=== PATIENT | male | born 1985 | race Two or more races ===

== ENCOUNTER 2018-04-28 12:36 | Emergency (ER) | payer SELFPAY ==
[~2018-04-28] VITALS: Ht 162.6 cm; Wt 81.6 kg
[2018-04-28] MEDS ORDERED: IOHEXOL 300 MG/ML 100ML BOTTLE IJ ONE (13:03)
[2018-04-28] MEDS ORDERED: DEXAMETHASONE SOD PHOS 10MG/1ML VIAL INJ IV ONE (14:15)
[2018-04-28] MEDS ORDERED: PROMETHAZINE HCL 25 MG/ML 1ML IV ONE (14:15)
[2018-04-28] MEDS ORDERED: HYDROmorphone HCL 2 MG/ML VL IV ONE (14:15)
[2018-04-28 15:39] VITALS: BP 137/79
[2018-04-28] MEDS ORDERED: TETANUS-DIPTH-ACEL PERTUSSIS 0.5ML SYRG IM ONE (17:00)
== END 2018-04-28 17:10 | disposition home or self-care (01) ==
LOC: EDBD 12:36 → ER 12:43
DX: S12.500A Unspecified displaced fracture of sixth cervical vertebra, initial encounter for closed fracture (principal); S12.600A Unspecified displaced fracture of seventh cervical vertebra, initial encounter for closed fracture; F17.210 Nicotine dependence, cigarettes, uncomplicated; R51 Headache; S92.412A Displaced fracture of proximal phalanx of left great toe, initial encounter for closed fracture; W17.89XA Other fall from one level to another, initial encounter; Y93.89 Activity, other specified; Y92.89 Other specified places as the place of occurrence of the external cause; Y99.8 Other external cause status
CPT/HCPCS: 29515; 70450; 71260; 72125; 72131; 73630; 74177; 90471; 94761; 96374; 96375; 99284; J1100; J1170; J2550; Q9967